=== PATIENT | male | born 1975 | race African-American/Black ===

== ENCOUNTER 2023-04-24 13:30 | Emergency (ER) | payer BC, MEDICAID ==
[~2023-04-24] VITALS: Ht 172.7 cm; Wt 128.0 kg
[2023-04-24 13:32] VITALS: O2SAT 95
[2023-04-24] MEDS: ACETAMINOPHEN 500MG TABLET PO ONE (15:40)
[2023-04-24] MEDS ORDERED: TOPUD MT (16:09)
[2023-04-24 16:32] VITALS: BP 144/92; PULSE 102; RESP 18; TEMP 98.1
== END 2023-04-24 16:34 | disposition home or self-care (01) ==
LOC: ER 13:30
DX: M54.2 Cervicalgia (principal); M25.552 Pain in left hip; M25.512 Pain in left shoulder; Z88.6 Allergy status to analgesic agent; V49.9XXA Car occupant (driver) (passenger) injured in unspecified traffic accident, initial encounter; Y93.89 Activity, other specified; Y92.89 Other specified places as the place of occurrence of the external cause; Y99.8 Other external cause status
CPT/HCPCS: 72040; 73030; 73502; 99284

== ENCOUNTER 2023-07-29 04:16 | Emergency (ER) | payer MEDICAID ==
[~2023-07-29] VITALS: Ht 175.3 cm; Wt 153.2 kg
[~2023-07-29 04:16] MED LIST: TOPUD MT
[2023-07-29 04:23] VITALS: O2SAT 96
[2023-07-29] MEDS ORDERED: ACET-2708 MT (08:33)
[2023-07-29] MEDS ORDERED: CYCL5TAB MT (08:33)
[2023-07-29] MEDS: HYDROCODONE/ACETAMINOPHEN 10/325MG TABLET PO ONE (08:47)
[2023-07-29 08:53] VITALS: BP 145/98; PULSE 113; RESP 22; TEMP 98.3
== END 2023-07-29 09:28 | disposition home or self-care (01) ==
LOC: ER 04:16
DX: S70.02XA Contusion of left hip, initial encounter (principal); S70.01XA Contusion of right hip, initial encounter; Z88.6 Allergy status to analgesic agent; V49.9XXA Car occupant (driver) (passenger) injured in unspecified traffic accident, initial encounter; Y93.9 Activity, unspecified; Y92.89 Other specified places as the place of occurrence of the external cause; Y99.8 Other external cause status
CPT/HCPCS: 99283